=== PATIENT | female | born 1980 | race Asian ===

== ENCOUNTER 2017-06-24 09:41 | Inpatient (IN) | payer BC ==
[~2017-06-24] VITALS: Ht 154.9 cm; Wt 55.5 kg
[2017-06-24] VITALS (12 sets, daily range): BP systolic 80–104; BP diastolic 42–65; PULSE 66–123; TEMP 97.7–98.4
[~2017-06-24 09:41] MED LIST: FERROUS SU325 MG/TAB; PRENATAL1 TA7 PO; SYNTHROID0.05 MG/TA PO
[2017-06-24 10:34] LABS: BASO % 0.3 % (0.0-2.0); EOS # 0.1 (0.0-0.7); EOS % 0.9 % (0-4.0); GRAN # 6.4 (1.4-6.5); GRAN % 70.5 % (42.2-75.2); LYMPH # 1.9 (1.2-3.4); LYMPH % 21.1 % (20.0-51.0); MEAN CELL VOLUME 90 fl (80.0-100.0); MEAN CORPUSCULAR HGB CONC 34 g/dl (33.0-37.0); MEAN PLATELET VOLUME 10.6 fl (7.4-10.4); MONO # 0.6 (0.1-0.6); MONO % 6.5 % (1.7-9.3); PLATELET COUNT 140 K/mm3 (130-400); RED BLOOD COUNT 3.83 M/mm3 (4.10-5.30)
[2017-06-24 10:37] LABS: HEMATOCRIT 34.4 % (37.0-47.0); HEMOGLOBIN 11.8 g/dl (12.5-16.0); MEAN CORPUSCULAR HEMOGLOBIN 31 pg (27.0-31.0)
[2017-06-25] MEDS ORDERED: IBU600 MG PO (08:44)
[2017-06-25 10:00] VITALS: BP 88/41; PULSE 74; TEMP 97.7
[2017-06-25 16:45] VITALS: BP 93/46; PULSE 73; TEMP 97.8
[2017-06-25 20:35] VITALS: BP 82/46; PULSE 75; TEMP 97.8
[2017-06-26 07:15] VITALS: BP 90/53; PULSE 66; TEMP 97.6
== END 2017-06-26 12:10 | disposition home or self-care (01) | DRG 775 ==
LOC: LDRO 09:41 → LDR 10:00 → OB 14:20
PROVIDERS: Obstetrics & Gynecology
PROC: 10E0XZZ Delivery of Products of Conception, External Approach (ICD-10-PCS; principal; 2017-06-24)
PROC: 0HQ9XZZ Repair Perineum Skin, External Approach (ICD-10-PCS; 2017-06-24)
DX: O99.824 Streptococcus B carrier state complicating childbirth (principal); O99.284 Endocrine, nutritional and metabolic diseases complicating childbirth; Z3A.39 39 weeks gestation of pregnancy; E03.9 Hypothyroidism, unspecified; O70.0 First degree perineal laceration during delivery; Z37.0 Single live birth
CPT/HCPCS: J2540; J2590; J2795; J7120

== ENCOUNTER → 2017-07-01 | Outpatient (CLI) | payer BC ==
[~2017-07-01] MED LIST changes: +IBU600 MG PO
== END ==
LOC: LAC 15:08
DX: Z39.1 Encounter for care and examination of lactating mother (principal); Z71.89 Other specified counseling